=== PATIENT | female | born 1940 | race Caucasian/White ===

== ENCOUNTER → 2023-07-01 15:20 | Outpatient (REF) | payer MEDICARE, BC, SELFPAY | LOC: DHCBC MAIN 15:20 | PROVIDERS: ATTENDING PHYSICIAN Internal Medicine; FAMILY PHYSICIAN Chiropractor | DX: I50.32 Chronic diastolic (congestive) heart failure (principal); R07.89 Other chest pain; I48.21 Permanent atrial fibrillation; I35.1 Nonrheumatic aortic (valve) insufficiency; I35.0 Nonrheumatic aortic (valve) stenosis | CPT/HCPCS: 93306 ==

== ENCOUNTER → 2023-07-04 12:11 | Outpatient (REF) | payer MEDICARE, BC, SELFPAY | LOC: DHCBC/DCA 12:11 | PROVIDERS: ATTENDING PHYSICIAN Internal Medicine; FAMILY PHYSICIAN Family Medicine | DX: R07.89 Other chest pain (principal); I50.32 Chronic diastolic (congestive) heart failure; I48.21 Permanent atrial fibrillation; I10 Essential (primary) hypertension | CPT/HCPCS: 78452; 93017; A9500; J2785 ==